=== PATIENT | male | born 2000 | race Caucasian/White ===

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

== ENCOUNTER 2019-01-16 00:40 | Inpatient (IN) | payer OTHER ==
[~2019-01-16] VITALS: Ht 160 cm; Wt 50.3 kg
[~2019-01-16 00:40] MED LIST changes: -ACETAMINOPHEN 325 MG TAB PO PRN; -DULO30CA PO; +DULO30CA9 PO; -LIDOCAINE 3.5 % 1ML OPHTH TOPICAL GEL OU ONE
[2019-01-16] MEDS ORDERED: MIRT1TAB15 PO (01:00)
[2019-01-16 01:53] LABS: HEMATOCRIT 44.6 % (42.0-52.0); HEMOGLOBIN 15.9 g/dl (13.5-17.5); MEAN CORPUSCULAR HEMOGLOBIN 29.8 pg (27.0-33.0); MEAN CORPUSCULAR HGB CONC 35.7 g/dl (32.0-36.5); MEAN CORPUSCULAR VOLUME 83.5 fl (80.0-96.0); PLATELET COUNT, AUTOMATED 154 10^3/uL (150-450); RED BLOOD COUNT 5.34 10^6/uL (4.30-6.10); WHITE BLOOD COUNT 6.3 10^3/uL (4.0-10.0)
[2019-01-16 02:21] LABS: AMPHETAMINES LEVEL URINE NEGATIVE (NEGATIVE); BARBITURATES URINE NEGATIVE (NEGATIVE); BENZODIAZEPINES URINE NEGATIVE (NEGATIVE); CANNABINOIDS URINE POSITIVE (NEGATIVE); COCAINE METABOLITE URINE NEGATIVE (NEGATIVE); METHADONE URINE NEGATIVE (NEGATIVE); OPIATES URINE NEGATIVE (NEGATIVE); PHENCYCLIDINE URINE NEGATIVE (NEGATIVE)
[2019-01-16 02:40] LABS: ACETAMINOPHEN LEVEL < 2.0 UG/ML (10.0-30.0); ALBUMIN 4.6 GM/DL (3.2-5.2); ALT/SGPT 17 U/L (12-78); BILIRUBIN,DIRECT 0.3 MG/DL (0.0-0.2); BILIRUBIN,TOTAL 0.9 MG/DL (0.2-1.0); BLOOD UREA NITROGEN 15 MG/DL (7-18); CALCIUM LEVEL 9.4 MG/DL (8.5-10.1); CARBON DIOXIDE LEVEL 23 MEQ/L (21-32); CHLORIDE LEVEL 103 MEQ/L (98-107); CREATININE FOR GFR 1.03 MG/DL (0.70-1.30); ETHYL ALCOHOL (ETHANOL) < 0.003 % (0.000-0.010); GLUCOSE, FASTING 81 MG/DL (70-100); POTASSIUM SERUM 4.3 MEQ/L (3.5-5.1); SALICYLATE LEVEL < 1.7 MG/DL (5.0-30.0); SODIUM LEVEL 137 MEQ/L (136-145); THYROID STIMULATING HORMONE 0.805 uIU/ML (0.463-3.98)
[2019-01-16] MEDS ORDERED: ACETAMINOPHEN TAB 650MG DOSE (2X325MG) PO PRN (03:15)
[2019-01-16] MEDS ORDERED: MOM 30ML SUSPENSION UDC PO PRN (03:15)
[2019-01-16] MEDS ORDERED: traZODone 50 MG TAB PO PRN (03:15)
[2019-01-16] MEDS ORDERED: MAALOX 30 ML SUSP *UDC PO PRN (03:15)
[2019-01-16] MEDS ORDERED: REME15TA PO (03:34)
[2019-01-16] MEDS ORDERED: VITA200021 PO (03:34)
[2019-01-16 03:59] VITALS: BP 136/93
[2019-01-16] MEDS: SERTRALINE HCL 25 MG TABLET PO SCH (09:00)
--- NOTE | 2019-01-16 09:39 | HPEPDOC ---
General Date of Admission Jan 16, 2019 at 03:03 Date of Service: Jan 16, 2019 Attending Physician: DAVID ESPANA MD Chief Complaint The patient is a 18-year-old male admitted with a reason for visit of Other Specified Anxiety D/O. Source: RN/ History of Present Illness Chuckie Santos is a 18-year-old male, past medical history significant for anxiety disorder, presenting with worsening anxiety for 2 weeks after he stopped taking his medications. Patient also verbalized suicidal ideation without a plan and some degree of paranoia. On assessment, he denies any problems serious enough to warrant inpatient hospitalization. He denies any medical problems, denies chest pain, denies shortness of breath, denies weakness, denies malaise of any type. He does report intermittent palpitations, sometimes with working out. Home Medications Scheduled Cholecalciferol (Vitamin D3) (Vitamin D3) 2,000 Unit Capsule, 2,000 UNIT PO DAILY, (Reported) Mirtazapine (Remeron) 15 Mg Tablet, 15 MG PO QHS, (Reported) Allergies Coded Allergies: No Known Allergies (Verified , 01/26/03) Past Medical History Medical History Anxiety Polysubstance abuse Surgical History Patient denies surgical history Family History Father: Anxiety disorder Social History * Smoker: Denies Alcohol: Denies Drugs: marijuana A-FIB/CHADSVASC A-FIB History Current/History of A-Fib/PAF?: No Current PO Anticoag Therapy: No Review of Systems Other systems A 10 point pertinent review of systems was completed, negative except as stated in the history of presenting illness. Physical Examination Other physical findings GENERAL: NAD SKIN : Warm, dry intact HEENT: Atraumatic, normocephalic, PERRL, moist mucous membrane CARDIOVASCULAR: Regular rate and rhythm, S1S2, no JVD, no edema, distal pulses + and palpable RESP: CTAB, no accessory muscle use noted ABDOMEN: BS+ non distended non tender MS: no joint deformities NEURO: Alert and oriented x 3, CN2-12 grossly intact PSYCH: no anxiety or agitation, appropriate mood and affect. Vital Signs Vital Signs Date Time Temp Pulse Resp B/P (MAP) Pulse Ox O2 Delivery O2 Flow Rate FiO2 01/16/19 03:59 98.7 106 20 136/93 (107) 01/16/19 00:41 97 Room Air Laboratory Data Labs 24H Laboratory Tests 2 01/16/19 01:46: Nucleated Red Blood Cells % (auto) 0.0, Anion Gap 11, Calcium Level 9.4, Aspartate Amino Transf (AST/SGOT) 10, Alanine Aminotransferase (ALT/SGPT) 17, Alkaline Phosphatase 90, Total Bilirubin 0.9, Direct Bilirubin 0.3H, Total Protein 8.0, Albumin 4.6, Albumin/Globulin Ratio 1.35, Thyroid Stimulating Hormone (TSH) 0.805, Salicylates Level < 1.7L, Urine Amphetamines Screen NEGATIVE, Urine Benzodiazepines Screen NEGATIVE, Urine Opiates Screen NEGATIVE, Urine Methadone Screen NEGATIVE, Acetaminophen Level < 2.0L, Urine Barbiturates Screen NEGATIVE, Urine Phencyclidine Screen NEGATIVE, Urine Cocaine Metabolite Screen NEGATIVE, Urine Cannabinoids Screen POSITIVEH, Ethyl Alcohol Level < 0.003 CBC/BMP Laboratory Tests 01/16/19 01:46 Red Blood Count 5.34, Mean Corpuscular Volume 83.5, Mean Corpuscular Hemoglobin 29.8, Mean Corpuscular Hemoglobin Concent 35.7, Red Cell Distribution Width 11.6 Assessment/Plan Chest pain. Due to Anxiety disorder Suicidal ideation Assessment and plan Patient has a TSH level which is borderline low. Check free T4 levels Management of suicidal ideation and anxiety disorder by primary team If free T4 levels within normal limits. No further medical management required for patient. Plan / VTE VTE Prophylaxis Ordered?: No VTE Exclusion Mechanical Proph: Low Risk for VTE BERRY HARMONP Jan 16, 2019 09:39
[2019-01-16 18:00] VITALS: BP 160/85
[2019-01-17 07:09] VITALS: BP 130/78
[2019-01-17] MEDS: SERTRALINE HCL 25 MG TABLET PO SCH (09:00)
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
[2019-01-17] MEDS ORDERED: hydrOXYzine 10 MG TAB PO PRN (12:00)
[2019-01-17 18:11] VITALS: BP 119/78
[2019-01-18 06:33] VITALS: BP 143/86
--- NOTE | 2019-01-18 08:49 | MHIPNPDOC ---
[facility] Progress Note Progress Note DATE OF SERVICE: 01/18/19 HISTORY: Patient is a 18 -year-old , male, with a psych history of MDD and LUIGI admitted to [facility] as an adolescent 3 times in the past for SI who prese nted to the ED with his mother with severe anxiety, paranoia, insomnia, not letting mother leave home due to fear of what he might do, agoraphobia, panic attack symptoms when he tries to leave his home since abruptly stopping 01/09/19 use of cannabis so he could get a job in the future per ED. Pt has been taking remeron that was discontinued by his outpatient provider as he believed it was making him more anxious per ED. Pt also endorsed in the ED passive SI and stated "I'd be better off ." Per pt's mother when asked about pt in ED stated that he has been suffering from anxiety since he was a child to the point in which he had to do high school online secondary his anxiety. VITAL SIGNS: See below. NEW TEST RESULTS: See below. CURRENT MEDICATIONS: See below. MENTAL STATUS EXAMINATION: General Appearance: well groomed, appears stated age, hospital scubs/clothing Build: average Demeanor: average Eye Contact: average Activity: less anxious Behavior: cooperative Speech: clear, normal volume, reg/rate,rhythm,volume Mood: euthymic, less anxious Mood "good" Affect: euthymic, congruent, less anxious Thought Process: logical/linear, intact Thought Content (Delusions): none reported, denies SI, HI, AVH Thought Content (Other): none reported, guarded, appropriate Thought Content (Aggressive): none reported Perception (Hallucinations): none reported Perception (Other): none reported Cognition (Impairment of): none reported Cognition(Intelligence Est.): average Oriented: Awake, Alert, Oriented times three Insight: fair Psychosis: Denies DIAGNOSES: Cannabis Withdrawal Anxiety d/o with agoraphobia ASSESSMENT:Pt seen and states that his mood is better today and that he went to yoga this morning that he really found beneficial for his anxiety and enjoyed a lot. States he's going to start going to yoga classes with his sister who goes to the [facility] once d/c. States he slept well last night. Denies need to take any atarax or trazodone since here as anxiety improved and is sleeping well w/o medication. He is attending groups and finding them very helpful. He denies depression, anxiety, insomnia, SI/HI, hallucinations, delusions. Pt feels safe here. MANAGEMENT PLAN: continue plan Medications: atarax 10mg q6hr prn anxiety trazodone 50mg qhs prn insomnia TIME SPENT: 30 minutes. Vital Signs Vital Signs Date Time Temp Pulse Resp B/P (MAP) Pulse Ox O2 Delivery O2 Flow Rate FiO2 01/18/19 06:33 99.1 67 12 143/86 (105) 01/16/19 00:41 97 Room Air Current Medications Current Medications Acetaminophen (Tylenol Tab) 650 mg Q6HP PRN PO HEADACHE or DISCOMFORT; Start 01/16/19 at 03:15 Al Hydrox/Mg Hydrox/Simethicone (Mylanta) 30 ml Q4HP PRN PO HEARTBURN/INDIGESTION; Start 01/16/19 at 03:15 Home Med (Med Rec Complete!) ASDIRECTED XX ; Start 01/16/19 at 03:45; Stop 01/16/19 at 03:45; Status DC Hydroxyzine HCl (Atarax) 10 mg Q6HP PRN PO ANXIETY/AGITATION; Start 01/17/19 at 12:00 Magnesium Hydroxide (Milk Of Magnesia) 30 ml DAILYPRN PRN PO CONSTIPATION; Start 01/16/19 at 03:15 Sertraline HCl (Zoloft) 25 mg DAILY PO ; Start 01/16/19 at 09:00; Stop 01/17/19 at 11:50; Status DC Trazodone HCl (Desyrel) 50 mg QHSP PRN PO INSOMNIA; Start 01/16/19 at 03:15 Allergies Coded Allergies: No Known Allergies (Verified , 01/26/03) GISSEL URIOSTEGUI DO Jan 18, 2019 8:49 am
[2019-01-18 18:00] VITALS: BP 108/62
[2019-01-19 06:35] VITALS: BP 128/71
--- NOTE | 2019-01-19 08:33 | MHIPNPDOC ---
[facility] Progress Note Progress Note DATE OF SERVICE: 01/19/19 HISTORY: Patient is a 18 -year-old , male, with a psych history of MDD and LUIGI admitted [place] [facility] as an adolescent 3 times in the past for SI who prese nted to the ED with his mother with severe anxiety, paranoia, insomnia, not letting mother leave home due to fear of what he might do, agoraphobia, panic attack symptoms when he tries to leave his home since abruptly stopping 01/09/19 use of cannabis so he could get a job in the future per ED. Pt has been taking remeron that was discontinued by his outpatient provider as he believed it was making him more anxious per ED. Pt also endorsed in the ED passive SI and stated "I'd be better off ." Per pt's mother when asked about pt in ED stated that he has been suffering from anxiety since he was a child to the point in which he had to do high school online secondary his anxiety. VITAL SIGNS: See below. NEW TEST RESULTS: See below. CURRENT MEDICATIONS: See below. MENTAL STATUS EXAMINATION: General Appearance: well groomed, appears stated age, hospital scubs/clothing Build: average Demeanor: average Eye Contact: average Activity: average Behavior: cooperative Speech: clear, normal volume, reg/rate,rhythm,volume Mood: euthymic Mood "good" Affect: euthymic, congruent Thought Process: logical/linear, intact Thought Content (Delusions): none reported, denies SI, HI, AVH Thought Content (Other): none reported, guarded, appropriate Thought Content (Aggressive): none reported Perception (Hallucinations): none reported Perception (Other): none reported Cognition (Impairment of): none reported Cognition(Intelligence Est.): average Oriented: Awake, Alert, Oriented times three Insight: fair Psychosis: Denies DIAGNOSES: Cannabis Withdrawal Anxiety d/o with agoraphobia ASSESSMENT:Pt seen and states that his mood is good today and that he went to yoga this morning that he really found beneficial for his anxiety and enjoyed a lot is excited to start yoga this morning as he really likes it and finds it helpful for his mood and anxiety. States he's going to start going to yoga classes with his sister who goes to the [facility] once d/c. States he slept well last night. Denies need to take any atarax or trazodone since here as anxiety improved and is sleeping well w/o medication. He is attending groups and finding them very helpful. He denies depression, anxiety, insomnia, SI/HI, house llucinations, delusions. Pt feels safe here. MANAGEMENT PLAN: continue plan Medications: atarax 10mg q6hr prn anxiety trazodone 50mg qhs prn insomnia TIME SPENT: 30 minutes. Vital Signs Vital Signs Date Time Temp Pulse Resp B/P (MAP) Pulse Ox O2 Delivery O2 Flow Rate FiO2 01/19/19 06:35 98.8 118 16 128/71 (90) 01/16/19 00:41 97 Room Air Current Medications Current Medications Acetaminophen (Tylenol Tab) 650 mg Q6HP PRN PO HEADACHE or DISCOMFORT; Start 01/16/19 at 03:15 Al Hydrox/Mg Hydrox/Simethicone (Mylanta) 30 ml Q4HP PRN PO HEARTBURN/INDIGESTION; Start 01/16/19 at 03:15 Home Med (Med Rec Complete!) ASDIRECTED XX ; Start 01/16/19 at 03:45; Stop 01/16/19 at 03:45; Status DC Hydroxyzine HCl (Atarax) 10 mg Q6HP PRN PO ANXIETY/AGITATION; Start 01/17/19 at 12:00 Magnesium Hydroxide (Milk Of Magnesia) 30 ml DAILYPRN PRN PO CONSTIPATION; Start 01/16/19 at 03:15 Sertraline HCl (Zoloft) 25 mg DAILY PO ; Start 01/16/19 at 09:00; Stop 01/17/19 at 11:50; Status DC Trazodone HCl (Desyrel) 50 mg QHSP PRN PO INSOMNIA; Start 01/16/19 at 03:15 Allergies Coded Allergies: No Known Allergies (Verified , 01/26/03) GISSEL URIOSTEGUI DO Jan 19, 2019 8:33 am
[2019-01-19 18:00] VITALS: BP 129/85
[2019-01-20 06:50] VITALS: BP 146/87
[2019-01-20] MEDS ORDERED: HYDR-643 PO (08:57)
[2019-01-20] MEDS ORDERED: TRAZ-252 PO (08:57)
--- NOTE | 2019-01-20 08:57 | MHDSPDOC ---
[facility] Discharge Summary Discharge Summary DATE OF ADMISSION: Jan 16, 2019 at 3:03 am DATE OF DISCHARGE: January 20, 2019 DISCHARGE DIAGNOSES: Cannabis Withdrawal Anxiety d/o with agoraphobia REASON FOR ADMISSION: Patient is a 18 -year-old , male, with a psych history of MDD and LUIG[place] [facility] [place] in [place] past for SI who presented to the ED with his mother with severe anxiety, paranoia, insomnia, not letting mother leave home due to fear of what he might do, agoraphobia, panic attack symptoms when he tries to leave his home since abruptly stopping 01/09/19 use of cannabis so he could get a job in the future per ED. Pt has been taking remeron that was discontinued by his outpatient provider as he believed it was making him more anxious per ED. Pt also endorsed in the ED passive SI and stated "I'd be better off ." Per pt's mother when asked about pt in ED stated that he has been suffering from anxiety since he was a child to the point in which he had to do high school online secondary his anxiety. CONSULTANTS INVOLVED: none TREATMENT AND PROGRESS ON THE UNIT : Pt was admitted to [facility], seen for psychiatric assessment and monitored for safety. He was provided atarax 10mg q6hr prn anxiety and trazodone 50mg qhs prn insomnia. Pt found his medications beneficial and tolerated them well. He attended groups daily during his stay and really enjoyed yoga wanting to go to classes after d/c. His symptoms improved with treatment. On day of discharge he denied depression, anxiety, insomnia, SI/HI, hallucinations, delusions. He was discharged home after family meeting with his mother with follow-up at [facility] with Sandra Orellana. He felt safe for discharge. DISCHARGE ASSESSMENT: Pt seen and states that his mood is "good" today and is looking forward to being discharge home today with his mother. States he's going to start going to yoga classes with his sister who goes to the [facility] once d/c. States he slept well last night. Denies need to take any atarax or trazodone since here as anxiety improved and is sleeping well w/o medication. He is attending groups and finding them very helpful. He denies depression, anxiety, insomnia, SI/HI, hallucinations, delusions. Pt feels safe to be discharged home with his mother. MENTAL STATUS EXAMINATION ON DISCHARGE: General Appearance: well groomed, appears stated age, own clothing Build: average Demeanor: average Eye Contact: average Activity: average Behavior: cooperative Speech: clear, normal volume, reg/rate,rhythm,volume Mood: euthymic Mood "good" Affect: euthymic, congruent Thought Process: logical/linear, intact Thought Content (Delusions): none reported, denies SI, HI, AVH Thought Content (Other): none reported, guarded, appropriate Thought Content (Aggressive): none reported Perception (Hallucinations): none reported Perception (Other): none reported Cognition (Impairment of): none reported Cognition(Intelligence Est.): average Oriented: Awake, Alert, Oriented times three Insight: good Judgement: good Psychosis: Denies MEDICATIONS ON DISCHARGE: atarax 10mg q6hr prn anxiety trazodone 50mg qhs prn insomnia PLAN/FOLLOWUP ARRANGEMENTS: D/c home with follow-up at [facility] with Sandra Orellana. The amount of time spent in the coordination of care for this patient was approximately 30 minutes. Vital Signs/I&Os Vital Signs Date Time Temp Pulse Resp B/P (MAP) Pulse Ox O2 Delivery O2 Flow Rate FiO2 01/20/19 06:50 98.0 87 16 146/87 (106) 01/16/19 00:41 97 Room Air Medications Scheduled Cholecalciferol (Vitamin D3) (Vitamin D3) 2,000 Unit Capsule, 2,000 UNIT PO DAILY, (Reported) Scheduled PRN Hydroxyzine HCl (Hydroxyzine HCl) 10 Mg Tablet, 10 MG PO Q6HP PRN for ANXIETY/AGITATION, #30 Trazodone HCl (Trazodone HCl) 50 Mg Tablet, 50 MG PO QHSP PRN for INSOMNIA, #10 Allergies Coded Allergies: No Known Allergies (Verified , 01/26/03) GISSEL URIOSTEGUI DO Jan 20, 2019 8:57 am
== END 2019-01-20 12:20 | disposition home or self-care (01) | DRG 882 ==
LOC: M ED 00:40 → M ED INP 03:03 → M PSY 03:51
PROVIDERS: ADMIT Psychiatry & Neurology Psychiatry; ATTEND Psychiatry & Neurology Psychiatry
DX: F40.02 Agoraphobia without panic disorder (principal); R45.851 Suicidal ideations; F41.1 Generalized anxiety disorder; G47.00 Insomnia, unspecified; Z79.899 Other long term (current) drug therapy; R07.9 Chest pain, unspecified; F12.23 Cannabis dependence with withdrawal

== ENCOUNTER → 2019-02-02 | Outpatient (CLI) | payer OTHER ==
[~2019-02-02] MED LIST changes: -DULO1CAP2 PO; +DULO1CAP5 PO; +HYDR-643 PO; +MIRT1TAB15 PO; +REME15TA PO; +TRAZ-252 PO; +VITA200021 PO
[2019-02-02 18:38] LABS: BASO % 0.2 % (0.0-1.0); EOS % 0.2 % (0.0-3.0); HEMATOCRIT 46.4 % (42.0-52.0); HEMOGLOBIN 15.9 g/dl (13.5-17.5); LYMPH # 1.4 10^3/uL (1.5-6.5); LYMPH % 10.9 % (24.0-44.0); MEAN CORPUSCULAR HEMOGLOBIN 29.7 pg (27.0-33.0); MEAN CORPUSCULAR HGB CONC 34.3 g/dl (32.0-36.5); MEAN CORPUSCULAR VOLUME 86.6 fl (80.0-96.0); MONO # 0.6 10^3/uL (0.0-0.8); MONO % 4.2 % (0.0-5.0); NEUTROPHILS % 84.1 % (36.0-66.0); PLATELET COUNT, AUTOMATED 155 10^3/uL (150-450); RED BLOOD COUNT 5.36 10^6/uL (4.30-6.10); WHITE BLOOD COUNT 13.1 10^3/uL (4.0-10.0)
[2019-02-02 18:55] LABS: ALBUMIN 4.4 GM/DL (3.2-5.2); ALT/SGPT 18 U/L (12-78); BILIRUBIN,TOTAL 0.6 MG/DL (0.2-1.0); BLOOD UREA NITROGEN 14 MG/DL (7-18); CARBON DIOXIDE LEVEL 30 MEQ/L (21-32); CHLORIDE LEVEL 106 MEQ/L (98-107); CREATININE FOR GFR 1.24 MG/DL (0.70-1.30); FREE T4 1.24 NG/DL (0.78-1.33); GLUCOSE, FASTING 60 MG/DL (70-100); IMMUNOGLOBULIN G 888 MG/DL (681-1648); IRON (FE) 103 UG/DL (65-175); PERCENT SATURATION 32.3 % (19.7-50.0); POTASSIUM SERUM 4.5 MEQ/L (3.5-5.1); SODIUM LEVEL 140 MEQ/L (136-145); THYROID STIMULATING HORMONE 0.836 uIU/ML (0.463-3.98); TOTAL IRON BINDING CAPACITY 319 UG/DL (250-450); TOTAL PROTEIN 7.6 GM/DL (6.4-8.2)
[2019-02-03 10:56] LABS: TOTAL 25(OH) VITAMIN D 30.8 NG/ML (30.0-100.0)
[2019-02-03 10:57] LABS: VITAMIN B12 LEVEL 429 PG/ML (247-911)
[2019-02-05 14:07] LABS: MAGNESIUM RBC LEVEL 5.5 mg/dL (4.2-6.8); Methylmalonic Acid 170 nmol/L (0-378); TISSUE TRANSGLUTAMINASE IgA <2 U/mL (0-3); TISSUE TRANSGLUTAMINASE IgG <2 U/mL (0-5); UNITSIGA FOR GLIADIN IGA 5 units (0-19); UNITSIGG FOR GLIADIN IGG 2 units (0-19)
== END ==
LOC: M LRY 10:30
PROVIDERS: ATTEND Nurse Practitioner Family
DX: F40.10 Social phobia, unspecified (principal); F41.1 Generalized anxiety disorder; E55.9 Vitamin D deficiency, unspecified

== ENCOUNTER → 2022-04-20 | Outpatient (CLI) | payer OTHER ==
[~2022-04-20] MED LIST changes: +ISOVUE-370 76% 100ML VIAL As Ordered ONE; +MIRT-62 PO; -REME15TA PO
== END ==
LOC: M RAD 07:58
PROVIDERS: ATTEND Nurse Practitioner Family
DX: R07.89 Other chest pain (principal); R06.02 Shortness of breath
CPT/HCPCS: 71260; Q9967

== ENCOUNTER 2024-10-14 08:27 | Emergency (ER) | payer OTHER ==
[~2024-10-14] VITALS: Ht 162.6 cm; Wt 52.1 kg
[~2024-10-14 08:27] MED LIST changes: -ISOVUE-370 76% 100ML VIAL As Ordered ONE; -MIRT-62 PO; +MIRT-88 PO
[2024-10-14 11:19] VITALS: BP 159/72; TEMP 99.6; O2SAT 98
== END 2024-10-14 12:15 | disposition home or self-care (01) ==
LOC: M ED 08:27
DX: G51.31 Clonic hemifacial spasm, right (principal); F41.9 Anxiety disorder, unspecified; Z79.899 Other long term (current) drug therapy

== ENCOUNTER → 2025-06-03 | Outpatient (CLI) | payer OTHER | LOC: M RAD 09:41 | PROVIDERS: ATTEND Nurse Practitioner Family | DX: N50.812 Left testicular pain (principal) ==